=== PATIENT | male | born 1980 | race Caucasian/White ===

== ENCOUNTER 2024-04-06 09:05 | Emergency (ER) | payer MEDICAID, OTHER ==
[~2024-04-06] VITALS: Ht 177.8 cm; Wt 85.2 kg
[2024-04-06 09:27] LABS: BASOPHILS # (AUTO) 0.1 X10'3 (0-0.2); BASOPHILS % (AUTO) 0.7 % (0-1); EOSINOPHILS # (AUTO) 0.3 X10'3 (0-0.9); EOSINOPHILS % (AUTO) 2.8 % (0-6); HEMATOCRIT 46.2 % (42.0-52.0); HEMOGLOBIN 15.5 g/dl (14.0-17.9); LYMPHOCYTES # (AUTO) 2.1 X10'3 (1.1-4.8); LYMPHOCYTES % (AUTO) 23.3 % (21-51); MEAN CORPUSCULAR HEMOGLOBIN 31.6 PG (27.0-31.0); MEAN CORPUSCULAR HGB CONC 33.6 g/dL (33.0-36.5); MEAN CORPUSCULAR VOLUME 94.1 FL (78-98); MEAN PLATELET VOLUME 7.9 FL (7.4-10.4); MONOCYTES # (AUTO) 0.8 X10'3 (0-0.9); MONOCYTES % (AUTO) 8.2 % (2-12); PLATELET COUNT 263 X10'3 (140-440); RED BLOOD COUNT 4.91 X10'6 (4.70-6.10); RED CELL DISTRIBUTION WIDTH 12.7 % (11.5-14.5); WHITE BLOOD COUNT 9.2 X10'3 (4.5-11.0)
[2024-04-06 09:56] LABS: ALBUMIN 4.2 G/DL (3.4-5.0); ANION GAP 9 (8-16); BLOOD UREA NITROGEN 6 MG/DL (7-18); CALCIUM 9.4 MG/DL (8.5-10.1); CHLORIDE 99 MMOL/L (99-107); GLUCOSE 169 MG/DL (70-104); PRO BRAIN NATRIURETIC PEPTIDE 735 PG/ML (0-125); SODIUM 139 MMOL/L (135-145); TOTAL CARBON DIOXIDE 31.1 MMOL/L (24-32); eCRCL 81 ML/MIN; eGFR 66 ML/MIN
[2024-04-06] MEDS: hydrALAZINE 20mg/ml inj. IV ONE ×2 (10:00→10:44)
[2024-04-06] MEDS: ondansetron/PF 4mg/2ml inj IV ONE (10:01)
[2024-04-06] MEDS ORDERED: NO HOME MEDS (10:44)
--- NOTE | 2024-04-06 11:17 | NUR ---
Back from CT at this time via wheelchair.
--- NOTE | 2024-04-06 11:31 | NUR ---
Faisal Sykes NP notified that pts BP remains elevated at 224/116 46 minutes after IV hydralazine. He will place orders.
[2024-04-06] MEDS ORDERED: AMLO-139 PO (11:41)
[2024-04-06] MEDS ORDERED: HYDR12.55 PO (11:41)
[2024-04-06] MEDS: cloNIDine 0.1 mg tablet PO ONE (11:46)
[2024-04-06 12:24] VITALS: BP 207/121; PULSE 92; RESP 16; TEMP 98.5; O2SAT 97
== END 2024-04-06 12:26 | disposition home or self-care (01) ==
LOC: ER 09:06
DX: I10 Essential (primary) hypertension (principal); R20.0 Anesthesia of skin; R42 Dizziness and giddiness; Z88.1 Allergy status to other antibiotic agents; Z88.0 Allergy status to penicillin; Z79.899 Other long term (current) drug therapy
CPT/HCPCS: 36415; 70450; 71045; 80048; 83880; 84484; 85025; 93005; 96374; 96375; 96376; 99285; J0360; J2405